=== PATIENT | female | born 1955 | race Caucasian/White ===

== ENCOUNTER 2017-03-29 07:49 | Outpatient (CLI) | payer OTHER ==
[2017-03-29 08:05] LABS: BASOPHILS % (AUTO) 0.7 %; EOSINOPHILS # (AUTO) 0.1 10^3/uL (0.0-0.7); EOSINOPHILS % (AUTO) 0.9 %; HCT - HEMATOCRIT 42.1 % (37.0-47.0); HGB - HEMOGLOBIN 14.1 g/dL (12.0-16.0); LYMPHOCYTES # (AUTO) 1.4 10^3/uL (1.5-3.5); LYMPHOCYTES % (AUTO) 27.2 %; MEAN CORPUSCULAR HGB CONC 33.6 g/dL (32.0-36.0); MEAN CORPUSCULAR VOLUME 92.4 fL (81.0-99.0); MEAN PLATELET VOLUME 8.9 fL (7.9-10.8); MONOCYTES # (AUTO) 0.5 10^3/uL (0.0-1.0); MONOCYTES % (AUTO) 9.9 %; NEUTROPHILS # (AUTO) 3.2 10^3/uL (1.5-6.6); NEUTROPHILS % (AUTO) 61.3 %; RED BLOOD COUNT 4.55 10^6/uL (4.20-5.40); RED CELL DISTRIBUTION WIDTH 12.9 % (12.0-15.0); UNCORRECTED WHITE BLOOD COUNT 5.3 x10^3/uL; WHITE BLOOD COUNT 5.3 x10^3/uL (4.8-10.8)
[2017-03-29 08:42] LABS: ALBUMIN/GLOBULIN RATIO 1.4 (1.0-2.2); BILIRUBIN,TOTAL 0.7 mg/dL (0.2-1.0); BUN - BLOOD UREA NITROGEN 20 mg/dL (6-20); CALCIUM 9.2 mg/dL (8.5-10.3); CARBON DIOXIDE - CO2 24 mmol/L (21-32); CHLORIDE 100 mmol/L (101-111); CHOL/HDL RATIO 3.5 (<4.4); CHOLESTEROL 246 mg/dL; CREATININE 0.5 mg/dL (0.4-1.0); GFR - MDRD 126 (>89); GLUCOSE 100 mg/dL (70-100); HDL CHOLESTEROL 71 mg/dL; LDL/HDL RATIO 2.2 (<4.4); POTASSIUM 4.1 mmol/L (3.5-5.0); SODIUM 134 mmol/L (135-145); TOTAL PROTEIN 7.6 g/dL (6.7-8.2); TRIGLYCERIDES 80 mg/dL; VLDL CHOLESTEROL 16 mg/dL
== END 2017-03-29 07:50 | disposition home or self-care (01) ==
LOC: LAB 07:49
PROVIDERS: ATTEND Physician Assistant Medical
DX: Z00.00 Encounter for general adult medical examination without abnormal findings (principal); E55.9 Vitamin D deficiency, unspecified; Z79.899 Other long term (current) drug therapy
CPT/HCPCS: 36415; 80053; 80061; 82306; 84443; 85025

== ENCOUNTER 2017-03-29 08:20 | Outpatient (CLI) | payer OTHER ==
--- NOTE | 2017-03-30 13:31 | Mammography Report ---
DIGITAL SCREENING MAMMOGRAM: 03/29/2017 CLINICAL INDICATION: A 61-year-old with history of late childbearing, personal history of left breas t cancer status post lumpectomy and radiation therapy, family history of breast cancer for screening. COMPARISON: 03/2016, 04/2014, 10/2012, 04/2012, 02/2011, 02/2010, 08/2009, 01/2009, 03/2008, 01/2008 TECHNIQUE: Routine CC and MLO projections were obtained of the breasts. FINDINGS: The breasts again demonstrate scattered fibroglandular densities bilaterally. Postoperati ve and post-treatment changes in the left breast are stable. Coarse and punctate, typically benign c alcifications are present. No suspicious masses, clustered microcalcifications, or regions of rush ectural distortion are identified. IMPRESSION: BENIGN FINDINGS. RECOMMENDATION: Routine annual screening unless otherwise clinically indicated. BIRADS CATEGORY 2 - BENIGN FINDINGS. STANDARD QUALIFYING STATEMENTS 1. This examination was reviewed with the aid of Computer-Aided Detection (CAD). 2. A negative or benign imaging report should not delay biopsy if clinically suspicious findings are present. Consider surgical consultation if warranted. More than 5% of cancers are not identified by i maging. 3. Dense breasts may obscure an underlying neoplasm. JOB #: [id number] EXT JOB #:[id number]
== END 2017-03-29 08:21 | disposition home or self-care (01) ==
LOC: DI 08:20
PROVIDERS: ATTEND Physician Assistant Medical
DX: Z12.31 Encounter for screening mammogram for malignant neoplasm of breast (principal); Z85.3 Personal history of malignant neoplasm of breast; Z80.3 Family history of malignant neoplasm of breast
CPT/HCPCS: 77067

== ENCOUNTER 2018-04-23 08:24 | Outpatient (CLI) | payer BC ==
[2018-04-23 09:20] LABS: BASOPHILS % (AUTO) 0.6 %; EOSINOPHILS % (AUTO) 0.8 %; HGB - HEMOGLOBIN 14.3 g/dL (12.0-16.0); LYMPHOCYTES # (AUTO) 1.3 10^3/uL (1.5-3.5); MEAN CORPUSCULAR HGB CONC 33.7 g/dL (32.0-36.0); MEAN PLATELET VOLUME 9.8 fL (7.9-10.8); MONOCYTES # (AUTO) 0.5 10^3/uL (0.0-1.0); MONOCYTES % (AUTO) 8.8 %; NEUTROPHILS # (AUTO) 3.7 10^3/uL (1.5-6.6); NEUTROPHILS % (AUTO) 65.8 %; PLT - PLATELET COUNT 213 10^3/uL (130-450); RED BLOOD COUNT 4.33 10^6/uL (4.20-5.40); WHITE BLOOD COUNT 5.6 x10^3/uL (4.8-10.8)
[2018-04-23 09:42] LABS: ALBUMIN 3.8 g/dL (3.2-5.5); ALBUMIN/GLOBULIN RATIO 1.1 (1.0-2.2); ALKALINE PHOSPHATASE 84 IU/L (42-121); ALT ALANINE AMINOTRANSFERASE 16 IU/L (10-60); AST ASPARTATE AMINOTRANSFERASE 22 IU/L (10-42); BUN - BLOOD UREA NITROGEN 11 mg/dL (6-20); CALCIUM 9.2 mg/dL (8.5-10.3); CARBON DIOXIDE - CO2 27 mmol/L (21-32); CHLORIDE 101 mmol/L (101-111); CHOL/HDL RATIO 3.3 (<4.4); CHOLESTEROL 223 mg/dL; CREATININE 0.5 mg/dL (0.4-1.0); GFR - MDRD 125 (>89); GLUCOSE 102 mg/dL (70-100); HDL CHOLESTEROL 67 mg/dL; LDL CHOLESTEROL,CALCULATED 141 mg/dL; LDL/HDL RATIO 2.1 (<4.4); SODIUM 136 mmol/L (135-145); TOTAL PROTEIN 7.4 g/dL (6.7-8.2); VLDL CHOLESTEROL 15 mg/dL
[2018-04-24 12:31] LABS: HEPATITIS C ANTIBODY NON-REACTIVE (NON-REACTIVE)
== END 2018-04-23 08:25 | disposition home or self-care (01) ==
LOC: LAB 08:24
PROVIDERS: ATTEND Physician Assistant Medical
DX: Z00.00 Encounter for general adult medical examination without abnormal findings (principal); E55.9 Vitamin D deficiency, unspecified; Z79.899 Other long term (current) drug therapy; Z11.59 Encounter for screening for other viral diseases; Z72.89 Other problems related to lifestyle; F32.9 Major depressive disorder, single episode, unspecified; E78.2 Mixed hyperlipidemia
CPT/HCPCS: 36415; 80053; 80061; 82306; 83721; 84443; 85025; 86803

== ENCOUNTER 2018-04-30 10:12 | Outpatient (CLI) | payer BC ==
--- NOTE | 2018-05-02 13:54 | Mammography Report ---
Procedure Date: 04/30/2018 Accession Number: [id number] / [id number] Procedure: MGN - Screening Mammo Dig Bilat CPT Code: FULL RESULT: EXAM: Screening Mammo Dig Bilat DATE: 04/30/2018 10:33 AM CLINICAL HISTORY: 62-year-old female with history of late childbearing and personal history of breast cancer status post lumpectomy and radiation on the left, intraductal carcinoma. TECHNIQUE: Bilateral CC and MLO views were obtained. COMPARISON: 03/29/2017, 03/30/2016, 05/04/2014, 04/24/2012. FINDINGS: The breasts demonstrate heterogeneously dense fibroglandular parenchyma bilaterally. Postsurgical changes and a biopsy marker are seen in the left breast. No suspicious masses, clustered microcalcifications, or regions of architectural distortion are identified. IMPRESSION: Benign findings RECOMMENDATION: Routine annual screening unless otherwise clinically indicated. BIRADS CATEGORY 2: Benign findings STANDARD QUALIFYING STATEMENTS: 1. This examination was reviewed with the aid of Computer-Aided Detection (CAD). 2. A negative or benign imaging report should not delay biopsy if clinically suspicious findings are present. Consider surgical consultation if warrented. More than 5% of cancers are not identified by imaging. 3. Dense breasts may obscure an underlying neoplasm.
== END 2018-04-30 10:13 | disposition home or self-care (01) ==
LOC: DI.N 10:12
PROVIDERS: ATTEND Physician Assistant Medical
DX: Z12.31 Encounter for screening mammogram for malignant neoplasm of breast (principal); Z85.3 Personal history of malignant neoplasm of breast
CPT/HCPCS: 77067

== ENCOUNTER 2018-05-01 08:21 | Outpatient (CLI) | payer BC ==
--- NOTE | 2018-05-01 10:51 | DEXA Report ---
Procedure Date: 05/01/2018 Accession Number: [id number] / [id number] Procedure: DEX - Dexa Spine and/or Hip CPT Code: FULL RESULT: EXAM: Dexa Spine and/or Hip DATE: 05/01/2018 8:43 AM CLINICAL HISTORY: POSTMENOPAUSAL, OSTEOPENIA/SCREENING MAMMO TECHNIQUE: Dual energy x-ray absorptiometry (DXA) was performed on a [employer] System. Regions measured are the AP Spine, femoral neck, and if needed forearm. COMPARISON: None. In accordance with the International Society for Clinical Densitometry (ISCD) guidelines, data from previous exams may be reanalyzed using current recommendations and techniques. This is done to allow a more accurate basis for comparison with the current study. FINDINGS: The data for the lumbar spine is as follows: BMD (g/cm/cm) T-SCORE Z-SCORE REGION L1 0.979 -1.3 0.5 L2 1.008 -1.6 0.2 L3 1.005 -1.6 0.1 L4 0.929 -2.3 -0.5 TOTAL 0.976 -1.7 0.1 NOTE: All evaluable vertebrae are used for classification The data for the hip is as follows: BMD (g/cm/cm) T-SCORE Z-SCORE REGION Neck 0.785 -1.8 -0.2 TOTAL 0.835 -1.4 -0.1 NOTE: The femoral neck or total proximal femur, whichever is lowest, is used for classification. IMPRESSION: THE WHO CLASSIFICATION BASED ON THE INTERNATIONAL REFERENCE STANDARD IS OSTEOPENIA. THE FRACTURE RISK IS INCREASED. RECOMMENDATION: Patients with diagnosis of osteoporosis or osteopenia should have regular bone mineral density assessment. For those eligible for Medicare, routine testing is allowed once every 2 years. Testing frequency can be increased for patients who have rapidly progressing disease or for those who are receiving medical therapy to restore bone mass. COMMENT: World Health Organization (WHO) definitions for osteoporosis and osteopenia: NORMAL BMD: T-score at -1.0 or higher, fracture risk is low OSTEOPENIA BMD: T-score between -1.0 and -2.5, fracture risk is increased. OSTEOPOROSIS BMD: T-score at -2.5 or lower, fracture risk is high. National Osteoporosis Foundation recommends: 1. Obtain adequate dietary calcium (at least 1200 mg per day) and vitamin D (400-800 international units per day). 2. Participate, as appropriate, in regular weightbearing and muscle-strengthening exercise. 3. Avoid tobacco use and reduce alcohol and caffeine intake. 4. For more detailed information see the website at www.NOF.org.
== END 2018-05-01 08:22 | disposition home or self-care (01) ==
LOC: DI 08:21
PROVIDERS: ATTEND Physician Assistant Medical
DX: M85.89 Other specified disorders of bone density and structure, multiple sites (principal); Z78.0 Asymptomatic menopausal state; Z85.3 Personal history of malignant neoplasm of breast
CPT/HCPCS: 77080

== ENCOUNTER 2019-04-30 12:59 | Outpatient (CLI) | payer BC ==
--- NOTE | 2019-05-01 08:47 | Mammography Report ---
Reason: SCREENING MAMMO Procedure Date: 04/30/2019 Accession Number: [id number] / [id number] Procedure: DEE - Screening Mammo w/Danny CPT Code: FULL RESULT: EXAM: Screening Mammo w/Danny DATE: 04/30/2019 1:56 PM CLINICAL HISTORY: Screening encounter. History of late childbearing and personal history of breast cancer status post lumpectomy of the left breast in 2007. Family history of breast cancer in the mother at the age of 63. TECHNIQUE: (B) - Bilateral CC, laterally exaggerated CC, MLO views were obtained. COMPARISON: 04/30/2018 through 05/04/2014. PARENCHYMAL PATTERN: (A) - The breast(s) demonstrate(s) scattered fibroglandular densities. FINDINGS: Postlumpectomy changes in the left breast are stable. A biopsy clip is again seen in the left breast. There are no suspicious masses, calcifications, or areas of distortion. IMPRESSION: Benign findings. BI-RADS category 2. RECOMMENDATION: (ANNUAL) - Recommend routine annual screening mammography. BI-RADS CATEGORY: (2) - Benign Findings. STANDARD QUALIFYING STATEMENTS: 1. This examination was not reviewed with the aid of Computer-Aided Detection (CAD). 2. A negative or benign imaging report should not preclude biopsy if clinically suspicious findings are present. 3. Dense breasts may obscure an underlying neoplasm. 4. This examination was reviewed with the aid of 3D breast imaging (tomosynthesis).
== END 2019-04-30 13:00 | disposition home or self-care (01) ==
LOC: DI 12:59
PROVIDERS: ATTEND Nurse Practitioner
DX: Z12.31 Encounter for screening mammogram for malignant neoplasm of breast (principal); Z85.3 Personal history of malignant neoplasm of breast; Z80.3 Family history of malignant neoplasm of breast
CPT/HCPCS: 77063; 77067

== ENCOUNTER 2019-05-14 08:05 | Outpatient (CLI) | payer BC ==
--- NOTE | 2019-05-14 16:54 | CARDIAC PROCEDURE NOTE ---
DATE OF SERVICE: 05/14/2019 Physician: Sonia Thomas MD, [facility] INDICATION: Abnormal EKG, family history of coronary artery disease. CARDIAC RISK FACTORS: Postmenopausal status, hypertension, family history of heart disease. PROCEDURE: After signing informed consent, the patient underwent a Ortega- protocol treadmill stress test with echo imaging at rest and at peak heart rate. RESTING HEART RATE: 76. PEAK HEART RATE: 135 (87% predicted maximum heart rate for age). RESTING BLOOD PRESSURE: 107/70. PEAK BLOOD PRESSURE: 142/60. The patient exercised for 9 minutes on a Ortega-protocol treadmill stress test. She achieved 10 METS, and a maximum heart rate of 135 (87% PMHR). The patient had mild to moderate shortness of breath, no chest pain. RESTING EKG: Normal sinus rhythm and within normal limits. EKG AT PEAK: Rare PACs, new P-wave enlargement consistent with P-pulmonale, new T-wave flattening in leads V4 through V6 and u-waves develop in recovery. IMPRESSION 1. Good exercise tolerance. 2. Normal resting EKG. 3. EKG changes with exercise are suggestive of pulmonary disease and cannot rule out ischemic changes (T-wave flattening in the lateral leads). 4. This patient's cardiac risk: MODERATE. 5. Echo images reported separately. cc: WINNIE Cabral NP-C TD: 05/14/2019 16:46 MTDD
== END 2019-05-14 08:06 | disposition home or self-care (01) ==
LOC: DI 08:05
PROVIDERS: ATTEND Nurse Practitioner
DX: R94.31 Abnormal electrocardiogram [ECG] [EKG] (principal); Z82.49 Family history of ischemic heart disease and other diseases of the circulatory system; I10 Essential (primary) hypertension; Z78.0 Asymptomatic menopausal state
CPT/HCPCS: 93350

== ENCOUNTER 2020-10-26 08:19 | Outpatient (CLI) | payer BC, OTHER ==
[2020-10-26 08:41] LABS: BASOPHILS % (AUTO) 0.1 %; EOSINOPHILS # (AUTO) 0.1 10^3/uL (0.0-0.7); EOSINOPHILS % (AUTO) 0.7 %; HGB - HEMOGLOBIN 14.5 g/dL (12.0-16.0); LYMPHOCYTES # (AUTO) 1.3 10^3/uL (1.5-3.5); LYMPHOCYTES % (AUTO) 17.6 %; MEAN CORPUSCULAR HEMOGLOBIN 32.4 pg (27.0-31.0); MEAN CORPUSCULAR VOLUME 98.2 fL (81.0-99.0); MEAN PLATELET VOLUME 11.1 fL (7.9-10.8); MONOCYTES # (AUTO) 0.8 10^3/uL (0.0-1.0); MONOCYTES % (AUTO) 10.2 %; NEUTROPHILS # (AUTO) 5.4 10^3/uL (1.5-6.6); NEUTROPHILS % (AUTO) 71.3 %; PLT - PLATELET COUNT 211 10^3/uL (130-450); RED BLOOD COUNT 4.48 10^6/uL (4.20-5.40); WHITE BLOOD COUNT 7.5 x10^3/uL (4.8-10.8)
[2020-10-26 09:18] LABS: ALBUMIN 4.5 g/dL (3.2-5.5); ALBUMIN/GLOBULIN RATIO 1.9 (1.0-2.2); ALKALINE PHOSPHATASE 77 IU/L (42-121); ALT ALANINE AMINOTRANSFERASE 22 IU/L (10-60); AST ASPARTATE AMINOTRANSFERASE 22 IU/L (10-42); BILIRUBIN,TOTAL 0.6 mg/dL (0.2-1.0); BUN - BLOOD UREA NITROGEN 20 mg/dL (6-20); CALCIUM 9.6 mg/dL (8.5-10.3); CARBON DIOXIDE - CO2 26 mmol/L (21-32); CHLORIDE 99 mmol/L (101-111); CHOL/HDL RATIO 2.5 (<4.4); CHOLESTEROL 178 mg/dL; CREATININE 0.6 mg/dL (0.4-1.0); GLUCOSE 99 mg/dL (70-100); HDL CHOLESTEROL 70 mg/dL; LDL CHOLESTEROL,CALCULATED 82 mg/dL; LDL/HDL RATIO 1.2 (<4.4); TOTAL PROTEIN 6.9 g/dL (6.7-8.2); VLDL CHOLESTEROL 26 mg/dL
== END 2020-10-26 08:20 | disposition home or self-care (01) ==
LOC: LAB 08:19
PROVIDERS: ATTEND Nurse Practitioner
DX: B00.9 Herpesviral infection, unspecified (principal); E55.9 Vitamin D deficiency, unspecified; I10 Essential (primary) hypertension; E78.2 Mixed hyperlipidemia; Z79.899 Other long term (current) drug therapy
CPT/HCPCS: 36415; 80053; 80061; 83721; 84443; 85025

== ENCOUNTER 2020-11-18 15:06 | Outpatient (CLI) | payer OTHER ==
--- NOTE | 2020-11-19 13:01 | Mammography Report ---
BILATERAL DIGITAL SCREENING MAMMOGRAM 3D/2D: 11/18/2020 CLINICAL: Routine screening. Personal history of left breast cancer. Comparison is made to exams dated: 04/30/2019 mammogram, 04/30/2018 mammogram, 03/29/2017 mammogram, 016 mammogram, 05/04/2014 mammogram, and 11/01/2012 mammogram - [facility]. The tissu e of both breasts is predominantly fatty. There are benign calcifications in the left breast. There also are benign post operative findings an d biopsy clip in the left breast. No significant masses, calcifications, or other findings are seen in either breast. There has been no significant interval change. IMPRESSION: BENIGN There is no mammographic evidence of malignancy. A 1 year screening mammogram is recommended. This exam was interpreted at Station ID: [id number]. NOTE: For mammograms, a report in lay terms will be sent to the patient. Approximately 15% of breast malignancies will not be visualized mammographically. In the management of a palpable breast mass, a negative mammogram must not discourage biopsy of a clinically suspicious lesion. Electronically Signed By: Bj Yeager acr/penrad:11/18/2020 17:14:46 ACR BI-RADS Category 2: Benign Finding(s) 3342F PARENCHYMAL PATTERN: (F) - The breast(s) demonstrate(s) diffuse fatty replacement. BI-RADS CATEGORY: (2) - 2 RECOMMENDATION: (ANNUAL) - Recommend routine annual screening mammography. [id number] 1 year screening LATERALITY: (B)
== END 2020-11-18 15:07 | disposition home or self-care (01) ==
LOC: DI.N 15:06
PROVIDERS: ATTEND Nurse Practitioner
DX: Z12.31 Encounter for screening mammogram for malignant neoplasm of breast (principal); Z08 Encounter for follow-up examination after completed treatment for malignant neoplasm; Z85.3 Personal history of malignant neoplasm of breast

== ENCOUNTER 2021-11-27 07:28 | Outpatient (CLI) | payer OTHER ==
[2021-11-27 07:44] LABS: BASOPHILS % (AUTO) 0.5 %; EOSINOPHILS # (AUTO) 0.1 10^3/uL (0.0-0.7); EOSINOPHILS % (AUTO) 1.4 %; HCT - HEMATOCRIT 44.1 % (37.0-47.0); HGB - HEMOGLOBIN 14.7 g/dL (12.0-16.0); LYMPHOCYTES # (AUTO) 1.6 10^3/uL (1.5-3.5); LYMPHOCYTES % (AUTO) 28.4 %; MEAN CORPUSCULAR HEMOGLOBIN 32.5 pg (27.0-31.0); MEAN CORPUSCULAR HGB CONC 33.3 g/dL (32.0-36.0); MEAN CORPUSCULAR VOLUME 97.6 fL (81.0-99.0); MEAN PLATELET VOLUME 10.5 fL (7.9-10.8); MONOCYTES # (AUTO) 0.5 10^3/uL (0.0-1.0); MONOCYTES % (AUTO) 8.9 %; NEUTROPHILS # (AUTO) 3.3 10^3/uL (1.5-6.6); NEUTROPHILS % (AUTO) 60.6 %; PLT - PLATELET COUNT 224 10^3/uL (130-450); RED BLOOD COUNT 4.52 10^6/uL (4.20-5.40); RED CELL DISTRIBUTION WIDTH 12.2 % (12.0-15.0); WHITE BLOOD COUNT 5.5 x10^3/uL (4.8-10.8)
[2021-11-27 08:02] LABS: ALBUMIN 4.5 g/dL (3.2-5.5); ALBUMIN/GLOBULIN RATIO 1.5 (1.0-2.2); ALKALINE PHOSPHATASE 80 IU/L (42-121); ALT ALANINE AMINOTRANSFERASE 21 IU/L (10-60); AST ASPARTATE AMINOTRANSFERASE 23 IU/L (10-42); BILIRUBIN,TOTAL 0.6 mg/dL (0.2-1.0); BUN - BLOOD UREA NITROGEN 14 mg/dL (6-20); CALCIUM 8.9 mg/dL (8.5-10.3); CARBON DIOXIDE - CO2 27 mmol/L (21-32); CHLORIDE 105 mmol/L (101-111); CHOL/HDL RATIO 2.2 (<4.4); CHOLESTEROL 163 mg/dL; CREATININE 0.5 mg/dL (0.4-1.0); GFR - MDRD 124 (>89); GLUCOSE 98 mg/dL (70-100); HDL CHOLESTEROL 73 mg/dL; LDL CHOLESTEROL,CALCULATED 79 mg/dL; LDL/HDL RATIO 1.1 (<4.4); POTASSIUM 4.2 mmol/L (3.5-5.0); SODIUM 141 mmol/L (135-145); TOTAL PROTEIN 7.5 g/dL (6.7-8.2); TRIGLYCERIDES 53 mg/dL; VLDL CHOLESTEROL 11 mg/dL
[2021-11-27 08:13] LABS: THYROID STIMULATING HORMONE 1.52 uIU/mL (0.34-5.60)
== END 2021-11-27 07:29 | disposition home or self-care (01) ==
LOC: LAB 07:28
PROVIDERS: ATTEND Nurse Practitioner Family
DX: Z00.00 Encounter for general adult medical examination without abnormal findings (principal); E78.2 Mixed hyperlipidemia
CPT/HCPCS: 36415; 80053; 80061; 83721; 84443; 85025

== ENCOUNTER 2021-12-24 11:03 | Emergency (ER) | payer OTHER ==
[2021-12-24] MEDS ORDERED: TETANUS/DIPHTHERIA/PERTUSSIS 0.5 ML SYRINGE IM ONE (11:46)
[2021-12-24] MEDS ORDERED: BACITRACIN ZINC OINT 1 PACKET TOP STA (11:53)
--- NOTE | 2021-12-24 12:10 | ED Physician Documentation ---
History of Present Illness - Stated complaint Stated Complaint: DOG BITES - Chief complaint Chief Complaint: Wound - Additonal information Additional information: 66-year-old female comes emergency department for evaluation of dog bites to b [facility] her forearms. Reports that her dog was sick and had diarrhea and she is attempting to put him in the shower about 2 AM. Because he was not feeling well he bit her. This occurred about 2 AM. She did cleanse and dress her wounds with hydrogen peroxide. She is here to update her tetanus and achieve wound care. 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) HEENT: Tonsil/Adenoidectomy - Present Medications Home Medications: Ambulatory Orders Medication Instructions Recorded Confirmed Citalopram [CeleXA] 20 mg PO DAILY 03/25/14 12/24/21 lisinopriL [Lisinopril] 5 mg PO DAILY 03/25/14 12/24/21 Doxycycline Hyclate 100 mg PO BID #20 cap 12/24/21 lisinopriL [Zestril] 5 mg PO DAILY 12/24/21 12/24/21 - Allergies Allergies/Adverse Reactions: Allergies Allergy/AdvReac Type Severity Reaction Status Date / Time amoxicillin [Amoxicillin] Allergy Intermediate Hives Verified 12/24/21 11:08 Sulfa (Sulfonamide Allergy Intermediate Hives Verified 12/24/21 11:08 Antibiotics) - Social History Does the pt smoke?: No Smoking Status: Never smoker PD ED PE EXPANDED - Derm Derm: Other (Right forearm 2 cm skin tear with centralized puncture wound. Mild amount of surrounding ecchymosis. Left forearm 2 puncture wounds with superficial skin tears) Results - Vitals Vitals: Vital Signs - 24 hr 12/24/21 11:10 Temperature 37.0 C Heart Rate 80 Respiratory 19 Rate Blood Pressure 151/76 H O2 Saturation 100 Oxygen O2 Source Room air PD MEDICAL DECISION MAKING - ED course Complexity details: considered differential, d/w patient ED course: 66-year-old female presents emergency department for evaluation of dog bite and skin tear wounds to her forearms after her dog bit her while sick yesterday evening. Dog's immunizations are up-to-date. Tetanus was updated for patient today. She does have some superficial skin tears overlying the puncture wounds. Given the higher risk of infection the wounds were cleansed and irrigated. We did place Steri-Strips to help approximate the wound but suturing was deferred given delay in closure as well as higher risk for infection. Patient has amoxicillin allergy as well as sulfa. Will be started on doxycycline. Encouraged routine wound care and emergent return precautions for infection. Departure - Departure Disposition: Home, Self Care Clinical Impression: Dog bite Qualifiers: Encounter type: initial encounter Qualified Code(s): W54.0XXA - Bitten by dog, initial encounter Condition: Stable Record reviewed to determine appropriate education?: Yes Instructions: ED Animal Bite Ch Prescriptions: Doxycycline Hyclate 100 mg PO BID #20 cap Comments: Karina I hope that your dog is feeling better soon. I also hope your wounds heal quickly. The bite wounds are actually puncture wounds. Because of this they do carry a higher risk of infection. You do have skin tears and superficial lacerations around the puncture wounds but given the time that has elapsed since the bite injury as well as the high risk for infection we simply place Steri-Strips over the wound on the right forearm. In 24 hours you may gently remove your dressing rinse with warm soap and water pat dry apply any antibiotic ointment. You need to fill the prescription for the doxycycline and begin taking twice daily. [facility] been [facility] to [facility] in [place]. In general you can expect that these bite wounds will heal over the next 1 to 2 weeks. Tylenol or ibuprofen should be sufficient for pain control at home. If you have increased pain, significant redness around the bite wounds, any milky drainage or red streaking in your arms you should return immediately to the ER for a second evaluation. Your tetanus was updated today and will be good for the next 7 to 10 years
[2021-12-24] MEDS ORDERED: IBUPROFEN 600 MG TABLET PO STA (12:27)
[2021-12-24] MEDS ORDERED: DOXYCYCLINE 100 MG TABLET PO STA (12:28)
[2021-12-24 12:42] VITALS: BP 122/80
== END 2021-12-24 12:41 | disposition home or self-care (01) ==
LOC: ED 11:03
DX: S51.832A Puncture wound without foreign body of left forearm, initial encounter (principal); S51.831A Puncture wound without foreign body of right forearm, initial encounter; W54.0XXA Bitten by dog, initial encounter; Y93.K3 Activity, grooming and shearing an animal; Y92.002 Bathroom of unspecified non-institutional (private) residence as the place of occurrence of the external cause
CPT/HCPCS: 90471; 90715; 99282; 99283; A9270

== ENCOUNTER 2022-03-14 12:59 | Outpatient (CLI) | payer OTHER ==
--- NOTE | 2022-03-15 07:55 | Mammography Report ---
BILATERAL DIGITAL SCREENING MAMMOGRAM 3D/2D: 03/14/2022 CLINICAL: Family history of breast cancer. Routine screening. Comparison is made to exams dated: 11/18/2020 mammogram, 04/30/2019 mammogram, 04/30/2018 mammogram, and 03/29/2017 mammogram - [facility]. The tissue of both breasts is predominantly fatty . There are benign calcifications in the left breast. There also are benign post operative findings an d biopsy clip in the left breast. No significant masses, calcifications, or other findings are seen in either breast. There has been no significant interval change. IMPRESSION: BENIGN There is no mammographic evidence of malignancy. A 1 year screening mammogram is recommended. This exam was interpreted at Station ID: [id number]. NOTE: For mammograms, a report in lay terms will be sent to the patient. Approximately 15% of breast malignancies will not be visualized mammographically. In the management of a palpable breast mass, a negative mammogram must not discourage biopsy of a clinically suspicious lesion. Electronically Signed By: Juan Carlos verma/henrry:03/14/2022 16:08:05 ACR BI-RADS Category 2: Benign Finding(s) 3342F PARENCHYMAL PATTERN: (F) - The breast(s) demonstrate(s) diffuse fatty replacement. BI-RADS CATEGORY: (2) - 2 RECOMMENDATION: (ANNUAL) - Recommend routine annual screening mammography. [id number] 1 year screening LATERALITY: (B)
== END 2022-03-14 13:00 | disposition home or self-care (01) ==
LOC: DI.N 12:59
PROVIDERS: ATTEND Nurse Practitioner Family
DX: Z12.31 Encounter for screening mammogram for malignant neoplasm of breast (principal); Z80.3 Family history of malignant neoplasm of breast; Z85.3 Personal history of malignant neoplasm of breast

== ENCOUNTER 2022-03-15 12:46 | Outpatient (CLI) | payer OTHER ==
--- NOTE | 2022-03-15 15:16 | DEXA Report ---
PROCEDURE: Dexa Spine and/or Hip INDICATIONS: OSTEOPENIA TECHNIQUE: Dual energy x-ray absorptiometry (DXA) was performed on a [employer] System. Regions measur ed are the AP Spine, femoral neck, and if needed forearm. COMPARISON: 05/01/2018 FINDINGS: Lumbar Spine: Bone Mineral Density 1.046 g/cm/cm,T score -1.1, osteopenia Left Hip: Bone Mineral Density 0.799 g/cm/cm,T score -1.7, osteopenia Left Femoral Neck: Bone Mineral Density 0.731 g/cm/cm, T score -2.2, osteopenia (T score greater or equal to -1.0: NORMAL) (T score from -1.1 to -2.4: OSTEOPENIA) (T score less than or equal to -2.5 to: OSTEOPOROSIS) Impression: Osteopenia, improved from the prior exam Patients with diagnosis of osteoporosis or osteopenia should have regular bone mineral density assess ment. For those eligible for Medicare, routine testing is allowed once every 2 years. Testing frequ ency can be increased for patients who have rapidly progressing disease or for those who are receivin g medical therapy to restore bone mass. Reviewed by: Brian Story MD on 03/15/2022 2:15 PM KRISTEL Approved by: Brian Story MD on 03/15/2022 2:15 PM KRISTEL Station ID: [id number]
== END 2022-03-15 12:47 | disposition home or self-care (01) ==
LOC: DI 12:46
PROVIDERS: ATTEND Nurse Practitioner Family
DX: Z13.820 Encounter for screening for osteoporosis (principal); M85.89 Other specified disorders of bone density and structure, multiple sites

== ENCOUNTER 2023-07-26 08:26 | Day surgery (SDC) | payer MEDICARE, OTHER ==
[2023-07-26] MEDS ORDERED: LACTATED RINGERS 1,000 ML IV ONE ×2 (08:38→09:43)
--- NOTE | 2023-07-26 09:00 | ANESTHESIA ---
Pre-Anesthesia VS, & Labs - Diagnosis screening - Procedure colonoscopy Vital Signs: Temp Pulse Resp BP Pulse Ox O2 Flow Rate 36.5 C 84 14 133/82 H 93 07/26/23 08:53 07/26/23 08:53 07/26/23 08:53 07/26/23 08:53 07/26/23 08:53 Height: 4 ft 11 in Weight (kg): 55.3 kg Body Mass Index: 24.6 BMI Classification: Normal - NPO >8 hours - Is Patient ?: No - Lab Results Lab results reviewed: Yes Home Medications and Allergies Home Medications: Ambulatory Orders Rosuvastatin Calcium [Crestor] 20 mg ORAL HS 07/26/23 lisinopriL [Zestril] 5 mg ORAL HS 07/26/23 valACYclovir [Valtrex] 500 mg ORAL DAILY 07/26/23 Citalopram [CeleXA] 10 mg PO DAILY 03/25/14 Rosuvastatin Calcium [Crestor] 20 mg ORAL HS 07/26/23 lisinopriL [Zestril] 5 mg ORAL HS 07/26/23 valACYclovir [Valtrex] 500 mg ORAL DAILY 07/26/23 Allergies/Adverse Reactions: Allergies Allergy/AdvReac Type Severity Reaction Status Date / Time insect venom Allergy Severe Anaphylaxis Verified 07/26/23 08:03 amoxicillin [Amoxicillin] Allergy Intermediate Hives Verified 07/26/23 07:58 Sulfa (Sulfonamide Allergy Intermediate Hives Verified 07/26/23 07:58 Antibiotics) clindamycin Allergy Mild Unknown Verified 07/26/23 08:03 lovastatin Allergy Mild Unknown Verified 07/26/23 08:03 Anes History & Medical History - Anesthetic History Anesthesia Complications: reports: No previous complications Family history of Anesthesia Complications: Denies - Medical History Cardiovascular: reports: Hypertension, High cholesterol Pulmonary: reports: None Gastrointestinal: reports: None Urinary: reports: Incontinence Musculoskeletal: reports: None Endocrine/Autoimmune: reports: None Blood Disorders: reports: None Skin: reports: Other Smoking Status: Never smoker Psychosocial: reports: Alcohol, Cannabis - Surgical History Eyes Ears Nose Throat (EENT): reports: Tonsil/Adenoidectomy, Other Gynecologic: reports: LEEP (Cervical surgery) Dermatologic: reports: Skin cancer surgery Exam General: Alert, Oriented x3, Cooperative Dental: WNL, Other (temp perm uppers) Mouth Openin Fingerbreadth Neck Mobility: Normal Mallampati classification: II Thyromental Distance: 4-6 cm Respiratory: Lungs clear Cardiovascular: Regular rate Plan Anesthesia Type: Total IV Consent for Procedure(s) Verified and Reviewed: Yes Code Status: Attempt Resuscitation ASA classification: 2-Mild systemic disease Is this case an emergency?: No
[2023-07-26] MEDS ORDERED: PROPOFOL 500 MG/50 ML 500 MG/50 ML VIAL ONE (09:15)
[2023-07-26] MEDS ORDERED: SIMETHICONE 40 MG/0.6 ML 15 ML BOTTLE PO ONE (09:23)
--- NOTE | 2023-07-26 10:05 | ANESTHESIA POST OP EVALUATION ---
Anesthesia Post Eval - Post Anesthesia Eval Vitals: Last Vital Signs Temp 36.2 C L 07/26/23 09:55 Pulse 85 07/26/23 09:55 Resp 15 07/26/23 09:55 BP 128/73 07/26/23 09:55 Pulse Ox 97 07/26/23 09:55 O2 Flow Rate CV Function Including HR & BP: Stable Pain Control: Satisfactory Nausea & Vomiting: Negative Mental Status: Baseline Respiratory Status: Airway Patent Hydration Status: Satisfactory Anesthesia Complications: None
[2023-07-26 10:23] VITALS: BP 152/80; O2SAT 98
[2023-07-26] MEDS ORDERED: SIMETHICONE 40 MG/0.6 ML 15 ML BOTTLE ONE (10:43)
[2023-07-26] MEDS ORDERED: GLYCOPYRROLATE 1 MG/5 ML VIAL ONE (10:59)
== END 2023-07-26 08:27 | disposition home or self-care (01) ==
LOC: SDS 08:26
PROVIDERS: ATTEND Surgery
PROC: 0DBN8ZZ Excision of Sigmoid Colon, Via Natural or Artificial Opening Endoscopic (ICD-10-PCS; 2023-07-26)
PROC: 0DBM8ZZ Excision of Descending Colon, Via Natural or Artificial Opening Endoscopic (ICD-10-PCS; 2023-07-26)
PROC: 0DBH8ZZ Excision of Cecum, Via Natural or Artificial Opening Endoscopic (ICD-10-PCS; principal; 2023-07-26 09:30)
DX: Z12.11 Encounter for screening for malignant neoplasm of colon (principal); D12.4 Benign neoplasm of descending colon; K63.5 Polyp of colon; K57.30 Diverticulosis of large intestine without perforation or abscess without bleeding
CPT/HCPCS: 45380; 45385; A9270; J7120

== ENCOUNTER 2023-10-22 08:22 | Outpatient (CLI) | payer MEDICARE, OTHER ==
[2023-10-22 08:39] LABS: BASOPHILS % (AUTO) 0.5 %; EOSINOPHILS # (AUTO) 0.1 10^3/uL (0.0-0.7); HCT - HEMATOCRIT 42.3 % (37.0-47.0); HGB - HEMOGLOBIN 13.8 g/dL (12.0-16.0); LYMPHOCYTES # (AUTO) 1.5 10^3/uL (1.5-3.5); LYMPHOCYTES % (AUTO) 24.8 %; MEAN CORPUSCULAR HEMOGLOBIN 31.6 pg (27.0-31.0); MEAN CORPUSCULAR HGB CONC 32.6 g/dL (32.0-36.0); MEAN CORPUSCULAR VOLUME 96.8 fL (81.0-99.0); MEAN PLATELET VOLUME 10.8 fL (7.9-10.8); MONOCYTES # (AUTO) 0.6 10^3/uL (0.0-1.0); MONOCYTES % (AUTO) 9.4 %; NEUTROPHILS # (AUTO) 3.9 10^3/uL (1.5-6.6); NEUTROPHILS % (AUTO) 64.1 %; PLT - PLATELET COUNT 241 10^3/uL (130-450); RED BLOOD COUNT 4.37 10^6/uL (4.20-5.40)
[2023-10-22 09:38] LABS: THYROID STIMULATING HORMONE 1.74 uIU/mL (0.34-5.60)
[2023-10-22 09:41] LABS: ALBUMIN 4.3 g/dL (3.2-5.5); ALBUMIN/GLOBULIN RATIO 1.5 (1.0-2.2); ALKALINE PHOSPHATASE 83 IU/L (42-121); ALT ALANINE AMINOTRANSFERASE 16 IU/L (10-60); AST ASPARTATE AMINOTRANSFERASE 18 IU/L (10-42); BILIRUBIN,TOTAL 0.5 mg/dL (0.2-1.0); BUN - BLOOD UREA NITROGEN 10 mg/dL (6-20); CALCIUM 9.5 mg/dL (8.5-10.3); CARBON DIOXIDE - CO2 30 mmol/L (21-32); CHLORIDE 104 mmol/L (101-111); CHOL/HDL RATIO 2.8 (<4.4); CHOLESTEROL 171 mg/dL; CREATININE 0.6 mg/dL (0.6-1.3); GFR - MDRD 100 (>89); GLUCOSE 96 mg/dL (74-104); HDL CHOLESTEROL 61 mg/dL; LDL CHOLESTEROL,CALCULATED 92 mg/dL; LDL/HDL RATIO 1.5 (<4.4); POTASSIUM 4.5 mmol/L (3.5-4.5); SODIUM 139 mmol/L (135-145); TOTAL PROTEIN 7.2 g/dL (6.4-8.9); TRIGLYCERIDES 88 mg/dL (48-352); VLDL CHOLESTEROL 18 mg/dL
== END 2023-10-22 08:23 | disposition home or self-care (01) ==
LOC: LAB 08:22
PROVIDERS: ATTEND Nurse Practitioner Family
DX: I10 Essential (primary) hypertension (principal); E78.2 Mixed hyperlipidemia; Z79.899 Other long term (current) drug therapy
CPT/HCPCS: 36415; 80053; 80061; 83721; 84443; 85025

== ENCOUNTER 2023-11-07 12:45 | Outpatient (CLI) | payer MEDICARE, OTHER | END 2023-11-07 13:00 | disposition home or self-care (01) | LOC: LAB.N 12:45 | PROVIDERS: ATTEND Physician Assistant Medical | DX: L53.9 Erythematous condition, unspecified (principal); R21 Rash and other nonspecific skin eruption | CPT/HCPCS: 87070 ==